=== PATIENT | male | born 1985 | race Caucasian/White ===

== ENCOUNTER 2023-10-15 11:24 | Emergency (ER) | payer MEDICAID ==
[~2023-10-15] VITALS: Ht 172.7 cm; Wt 88.6 kg
[2023-10-15 11:46] VITALS: BP 184/116; PULSE 108; O2SAT 98
[2023-10-15] MEDS ORDERED: ketorolac trometh inj. 60 MG/2 ML VIAL IM ONE (13:40)
[2023-10-15 13:52] VITALS: RESP 17
[2023-10-15] MEDS: ketorolac tromethamine 15mg/ml inj. IM ONE (13:52)
[2023-10-15] MEDS: HYDROcodone/acetaminophen 10/325mg tab PO ONE (13:52)
[2023-10-15] MEDS ORDERED: HYDR-3972 PO (15:02)
[2023-10-15 15:43] VITALS: TEMP 98.7
== END 2023-10-15 15:15 | disposition home or self-care (01) ==
LOC: ER 11:24
DX: S79.911A Unspecified injury of right hip, initial encounter (principal); M79.642 Pain in left hand; M79.641 Pain in right hand; R60.9 Edema, unspecified; W13.8XXA Fall from, out of or through other building or structure, initial encounter; Y93.89 Activity, other specified; Y92.89 Other specified places as the place of occurrence of the external cause; Y99.8 Other external cause status
CPT/HCPCS: 73030; 73130; 73502; 96372; 99284; J1885

== ENCOUNTER 2023-11-01 14:23 | Inpatient (IN) | payer MEDICAID ==
[~2023-11-01] VITALS: Ht 172.7 cm; Wt 86.0 kg
[~2023-11-01 14:23] MED LIST: HYDR-3972 PO
[2023-11-01] MEDS: morphine 4 MG/ML inj SYRINge IV ONE (16:26)
[2023-11-01] MEDS: ketorolac trometh. 30mg/ml inj. IV ONE (16:26)
[2023-11-01] MEDS: normal saline 1000ML IV soln IV ONE (16:36)
[2023-11-01 16:53] LABS: BASOPHILS # (AUTO) 0.1 X10'3 (0-0.2); BASOPHILS % (AUTO) 0.6 % (0-1); EOSINOPHILS # (AUTO) 0.1 X10'3 (0-0.9); HEMOGLOBIN 11.3 g/dl (14.0-17.9); MEAN CORPUSCULAR VOLUME 92.3 FL (78-98); MONOCYTES # (AUTO) 1.8 X10'3 (0-0.9); MONOCYTES % (AUTO) 9.1 % (2-12); NEUTROPHILS # (AUTO) 15.4 X10'3 (1.8-7.7)
[2023-11-01 16:54] LABS: EOSINOPHILS % (AUTO) 0.7 % (0-6); HEMATOCRIT 34.2 % (42.0-52.0); LYMPHOCYTES # (AUTO) 2.5 X10'3 (1.1-4.8); LYMPHOCYTES % (AUTO) 12.4 % (21-51); MEAN CORPUSCULAR HEMOGLOBIN 30.6 PG (27.0-31.0); MEAN CORPUSCULAR HGB CONC 33.2 g/dL (33.0-36.5); MEAN PLATELET VOLUME 6.6 FL (7.4-10.4); NEUTROPHILS % (AUTO) 77.2 % (42-75); PLATELET COUNT 967 X10'3 (140-440); RED CELL DISTRIBUTION WIDTH 13.9 % (11.5-14.5)
[2023-11-01 17:10] LABS: C-REACTIVE PROTEIN 21.06 MG/DL (0.0-0.5); ETHANOL 113 MG/DL (<10); SALICYLATE 4.6 MG/DL (4.0-20.0); URIC ACID 5.9 MG/DL (3.5-7.2)
[2023-11-01 17:15] LABS: ACETAMINOPHEN < 2.0 UG/ML (10-30)
[2023-11-01 17:25] LABS: HIV ANTIBODY 1&2 RAPID NON-REACTIVE (Neg)
[2023-11-01] MEDS: piperacillin/tazo 3.375gm/50ml 50 ML IV ONE (18:03)
[2023-11-01 19:54] LABS: CREATINE KINASE 22 U/L (39-308)
[2023-11-01] MEDS ORDERED: magnesium 2GM in 50ml NS 50 ML IV PRN (21:05)
[2023-11-01] MEDS ORDERED: acetaminophen 325mg tablet PO PRN (21:05)
[2023-11-01] MEDS ORDERED: mag hydrox/Alum hydrox/simeth 30ml oral suspension PO PRN (21:05)
[2023-11-01] MEDS ORDERED: ondansetron/PF 4mg/2ml inj IV PRN (21:05)
[2023-11-01] MEDS ORDERED: potassium Cl 20 mEq SR tablet PO PRN ×2 (21:05)
[2023-11-01] MEDS ORDERED: magnesium hydroxide 30ml (MOM) UD suspension PO PRN (21:05)
[2023-11-01] MEDS ORDERED: potassium Cl 40MEQ/1/2NS 520ml 520 ML IV PRN (21:05)
[2023-11-01] MEDS ORDERED: magnesium Cl slow-release 64mg tablet PO PRN (21:05)
[2023-11-01] MEDS ORDERED: magnesium 4gm in 100ml NS 100 ML IV PRN (21:05)
[2023-11-01] MEDS: vancomycin 1,750 MG in NS 350ml IV soln IV ONE (21:10)
[2023-11-01] MEDS: normal saline 1000ml 1,000 ML IV SCH (21:11)
[2023-11-01 21:55] LABS: ALANINE AMINOTRANSFERASE 25 U/L (12-78); ALBUMIN/GLOBULIN RATIO 0.4 (1.1-1.5); ALKALINE PHOSPHATASE 126 IU/L (46-116); ANION GAP 3 (8-16); ASPARTATE AMINO TRANSFERASE 19 U/L (10-37); BILIRUBIN,TOTAL 0.4 MG/DL (0.1-1.0); BLOOD UREA NITROGEN 9 MG/DL (7-18); BUN/CREATININE RATIO 12.7 (10.0-20.0); CALCIUM 8.7 MG/DL (8.5-10.1); CHLORIDE 102 MMOL/L (99-107); CREATININE 0.71 MG/DL (0.60-1.10); GLUCOSE 100 MG/DL (70-104); POTASSIUM 3.9 MMOL/L (3.5-5.1); SODIUM 135 MMOL/L (135-145); TOTAL CARBON DIOXIDE 30.5 MMOL/L (24-32); TOTAL PROTEIN 7.7 G/DL (6.4-8.2); eCRCL 138 ML/MIN; eGFR > 90 ML/MIN
[2023-11-01] MEDS ORDERED: ASPI81TA52 PO (22:34)
[2023-11-02] MEDS: DOXYCYCLINE 100MG CAPSULE PO STA (00:42)
[2023-11-02] MEDS: CefTRIAXone/D5W-Rocephin 1gm 50 ML IV SCH (00:43)
[2023-11-02] MEDS: HYDROcodone/acetaminophen 5mg/325mg tablet PO PRN (00:47)
[2023-11-02] MEDS ORDERED: vancomycin/NS 1 GM ADD-VANTAGE 250 ML IV SCH (05:00)
[2023-11-02 07:43] LABS: URINE AMPHETAMINE SCREEN NEGATIVE (Neg); URINE BARBITUATE SCREEN NEGATIVE (Neg); URINE BENZODIAZEPINES SCREEN NEGATIVE (Neg); URINE CANNABINOID SCREEN POSITIVE (Neg); URINE COCAINE SCREEN NEGATIVE (Neg); URINE METHADONE SCREEN NEGATIVE (Neg); URINE PHENCYCLIDINE SCREEN NEGATIVE (Neg)
[2023-11-02 07:47] LABS: BILIRUBIN,URINE NEGATIVE (Neg); CLARITY,URINE CLEAR (Clear); COLOR,URINE YELLOW (Yellow); GLUCOSE, URINE NEGATIVE (Neg); KETONES,URINE NEGATIVE (Neg); LEUKOCYTE ESTERASE ,URINE NEGATIVE (Neg); NITRITES, URINE NEGATIVE (Neg); OCCULT BLOOD,URINE NEGATIVE (Neg); PH,URINE 6.5 (4.8-8.0); PROTEIN,URINE NEGATIVE (Neg); UROBILINOGEN,URINE 0.2 E.U/dL (0.2-1.0)
[2023-11-02 07:48] LABS: UA COLLECTION TYPE VOIDED
[2023-11-02] MEDS: K and/or MAG REPLACEMENT MC SCH (08:00)
[2023-11-02 08:11] LABS: EOSINOPHILS # (AUTO) 0.1 X10'3 (0-0.9); LYMPHOCYTES # (AUTO) 1.7 X10'3 (1.1-4.8); MEAN CORPUSCULAR HEMOGLOBIN 31.1 PG (27.0-31.0)
[2023-11-02 08:13] LABS: BASOPHILS % (AUTO) 0.2 % (0-1); EOSINOPHILS % (AUTO) 0.5 % (0-6); HEMOGLOBIN 11.5 g/dl (14.0-17.9); MEAN CORPUSCULAR HGB CONC 33.8 g/dL (33.0-36.5); MEAN CORPUSCULAR VOLUME 92.1 FL (78-98); MEAN PLATELET VOLUME 6.7 FL (7.4-10.4); MONOCYTES # (AUTO) 1.2 X10'3 (0-0.9); MONOCYTES % (AUTO) 8.5 % (2-12); NEUTROPHILS # (AUTO) 11.1 X10'3 (1.8-7.7); NEUTROPHILS % (AUTO) 78.8 % (42-75); PLATELET COUNT 834 X10'3 (140-440); RED BLOOD COUNT 3.69 X10'6 (4.70-6.10); RED CELL DISTRIBUTION WIDTH 14.1 % (11.5-14.5); WHITE BLOOD COUNT 14.1 X10'3 (4.5-11.0)
[2023-11-02 08:37] LABS: ANION GAP 6 (8-16); BLOOD UREA NITROGEN 9 MG/DL (7-18); BUN/CREATININE RATIO 13.4 (10.0-20.0); CALCIUM 9.2 MG/DL (8.5-10.1); CHLORIDE 101 MMOL/L (99-107); CREATININE 0.67 MG/DL (0.60-1.10); GLUCOSE 90 MG/DL (70-104); MAGNESIUM 1.8 MG/DL (1.5-2.4); SODIUM 136 MMOL/L (135-145); TOTAL CARBON DIOXIDE 28.9 MMOL/L (24-32); eCRCL 146 ML/MIN; eGFR > 90 ML/MIN
[2023-11-02] MEDS: docusate sod 100mg capsule PO SCH (08:52)
[2023-11-02] MEDS: enoxaparin 40mg/0.4ml syringe SUBCUT SCH (08:53)
[2023-11-02 17:34] VITALS: RESP 17; O2SAT 100
[2023-11-02 17:40] VITALS: BP 146/99; PULSE 98; RESP 17; TEMP 98.6; O2SAT 100
[2023-11-02 18:00] VITALS: BP 146/99; PULSE 98; RESP 17; TEMP 98.6; O2SAT 100
[2023-11-02 20:00] VITALS: RESP 17; O2SAT 100
[2023-11-02] MEDS ORDERED: morphine 2 MG/ML inj. syringe IV PRN (20:55)
[2023-11-02] MEDS: morphine 2 MG/ML inj. syringe IV PRN (21:07)
[2023-11-02 22:00] VITALS: BP 144/88; PULSE 95; RESP 22; TEMP 97.5; O2SAT 97
[2023-11-03 05:00] VITALS: BP 135/98; PULSE 85; RESP 19; TEMP 98; O2SAT 97
[2023-11-03 06:58] LABS: BASOPHILS # (AUTO) 0.1 X10'3 (0-0.2); EOSINOPHILS # (AUTO) 0.2 X10'3 (0-0.9); EOSINOPHILS % (AUTO) 1.3 % (0-6); HEMATOCRIT 32.9 % (42.0-52.0); HEMOGLOBIN 10.8 g/dl (14.0-17.9); LYMPHOCYTES # (AUTO) 1.9 X10'3 (1.1-4.8); MEAN CORPUSCULAR HEMOGLOBIN 30.3 PG (27.0-31.0); MEAN CORPUSCULAR HGB CONC 32.8 g/dL (33.0-36.5); MEAN CORPUSCULAR VOLUME 92.6 FL (78-98); MEAN PLATELET VOLUME 6.6 FL (7.4-10.4); MONOCYTES % (AUTO) 8.6 % (2-12); NEUTROPHILS # (AUTO) 8.4 X10'3 (1.8-7.7); NEUTROPHILS % (AUTO) 73.1 % (42-75); PLATELET COUNT 777 X10'3 (140-440); RED BLOOD COUNT 3.55 X10'6 (4.70-6.10); RED CELL DISTRIBUTION WIDTH 14.2 % (11.5-14.5); WHITE BLOOD COUNT 11.6 X10'3 (4.5-11.0)
[2023-11-03 07:13] LABS: ALBUMIN 1.8 G/DL (3.4-5.0); ANION GAP 8 (8-16); BLOOD UREA NITROGEN 10 MG/DL (7-18); BUN/CREATININE RATIO 15.6 (10.0-20.0); CHLORIDE 99 MMOL/L (99-107); CREATININE 0.64 MG/DL (0.60-1.10); GLUCOSE 99 MG/DL (70-104); MAGNESIUM 1.8 MG/DL (1.5-2.4); POTASSIUM 3.9 MMOL/L (3.5-5.1); SODIUM 133 MMOL/L (135-145); TOTAL CARBON DIOXIDE 25.9 MMOL/L (24-32); eCRCL 153 ML/MIN; eGFR > 90 ML/MIN
[2023-11-03 08:00] VITALS: RESP 16; O2SAT 97
[2023-11-03 10:00] VITALS: BP 128/90; PULSE 75; RESP 16; TEMP 97.9; O2SAT 97
[2023-11-03] MEDS: LORazepam 1 MG tablet PO ONE ×2 (16:03→17:20)
[2023-11-03 18:00] VITALS: BP 154/101; PULSE 76; RESP 16; TEMP 97.8; O2SAT 100
[2023-11-03 20:00] VITALS: RESP 16; O2SAT 97
[2023-11-03 22:00] VITALS: BP 139/85; PULSE 80; RESP 18; TEMP 98.1; O2SAT 100
[2023-11-04 06:00] VITALS: BP 144/85; PULSE 88; RESP 20; TEMP 98.2; O2SAT 98
[2023-11-04 07:08] LABS: ANION GAP 7 (8-16); BLOOD UREA NITROGEN 11 MG/DL (7-18); BUN/CREATININE RATIO 16.7 (10.0-20.0); CHLORIDE 101 MMOL/L (99-107); CREATININE 0.66 MG/DL (0.60-1.10); GLUCOSE 96 MG/DL (70-104); MAGNESIUM 1.9 MG/DL (1.5-2.4); POTASSIUM 4.1 MMOL/L (3.5-5.1); SODIUM 134 MMOL/L (135-145); TOTAL CARBON DIOXIDE 25.7 MMOL/L (24-32); eCRCL 148 ML/MIN; eGFR > 90 ML/MIN
[2023-11-04 07:09] LABS: HEMOGLOBIN 10.8 g/dl (14.0-17.9); MONOCYTES # (AUTO) 0.8 X10'3 (0-0.9); NEUTROPHILS # (AUTO) 6.2 X10'3 (1.8-7.7)
[2023-11-04 07:15] LABS: BASOPHILS # (AUTO) 0.1 X10'3 (0-0.2); BASOPHILS % (AUTO) 1.5 % (0-1); EOSINOPHILS # (AUTO) 0.3 X10'3 (0-0.9); EOSINOPHILS % (AUTO) 2.8 % (0-6); HEMATOCRIT 32.7 % (42.0-52.0); LYMPHOCYTES # (AUTO) 1.9 X10'3 (1.1-4.8); MEAN CORPUSCULAR HEMOGLOBIN 30.7 PG (27.0-31.0); MEAN CORPUSCULAR VOLUME 93.1 FL (78-98); MONOCYTES % (AUTO) 8.5 % (2-12); NEUTROPHILS % (AUTO) 67.2 % (42-75); PLATELET COUNT 785 X10'3 (140-440); RED BLOOD COUNT 3.51 X10'6 (4.70-6.10); RED CELL DISTRIBUTION WIDTH 14.1 % (11.5-14.5); WHITE BLOOD COUNT 9.3 X10'3 (4.5-11.0)
[2023-11-04 08:45] VITALS: RESP 20; O2SAT 98
[2023-11-04 10:00] VITALS: BP 126/90; PULSE 83; RESP 14; TEMP 97.6; O2SAT 99
[2023-11-04] MEDS: VANCOmycin 2,000MG in NS 500ml IV soln IV ONE (11:32)
[2023-11-04] MEDS ORDERED: iohexol 300mg/ml 100ml inj. ONE (16:19)
[2023-11-04 18:00] VITALS: BP 133/97; PULSE 66; RESP 14; TEMP 97.5; O2SAT 100
[2023-11-04 18:32] LABS: CHLAMYDIA TRACHOMATIS, NAA Negative (Negative)
[2023-11-04] MEDS: vancomycin/NS 1 GM ADD-VANTAGE 250 ML IV SCH (19:44)
[2023-11-04 20:00] VITALS: RESP 20; O2SAT 98
[2023-11-04 20:23] LABS: RHEUM FACTOR QUAL REFLEX TITER NEGATIVE (Neg)
[2023-11-04 22:00] VITALS: BP 136/87; PULSE 70; RESP 14; TEMP 97.9; O2SAT 98
[2023-11-05] VITALS (7 sets, daily range): BP systolic 130–142; BP diastolic 81–90; PULSE 71–107; RESP 14–18; TEMP 97.2–99.3; O2SAT 97–100
[2023-11-05 07:11] LABS: EOSINOPHILS # (AUTO) 0.3 X10'3 (0-0.9); HEMOGLOBIN 11.4 g/dl (14.0-17.9); MONOCYTES # (AUTO) 0.7 X10'3 (0-0.9); NEUTROPHILS # (AUTO) 7.2 X10'3 (1.8-7.7); NEUTROPHILS % (AUTO) 73.3 % (42-75)
[2023-11-05 07:14] LABS: BASOPHILS # (AUTO) 0.1 X10'3 (0-0.2); BASOPHILS % (AUTO) 1.4 % (0-1); EOSINOPHILS % (AUTO) 2.8 % (0-6); HEMATOCRIT 34.1 % (42.0-52.0); LYMPHOCYTES # (AUTO) 1.5 X10'3 (1.1-4.8); LYMPHOCYTES % (AUTO) 15.2 % (21-51); MEAN CORPUSCULAR HEMOGLOBIN 30.7 PG (27.0-31.0); MEAN CORPUSCULAR HGB CONC 33.4 g/dL (33.0-36.5); MONOCYTES % (AUTO) 7.3 % (2-12); PLATELET COUNT 755 X10'3 (140-440); RED CELL DISTRIBUTION WIDTH 14.3 % (11.5-14.5); WHITE BLOOD COUNT 9.8 X10'3 (4.5-11.0)
[2023-11-05 07:26] LABS: ALBUMIN 2.2 G/DL (3.4-5.0); ANION GAP 9 (8-16); BLOOD UREA NITROGEN 9 MG/DL (7-18); BUN/CREATININE RATIO 13.4 (10.0-20.0); CALCIUM 9.1 MG/DL (8.5-10.1); CHLORIDE 102 MMOL/L (99-107); CREATININE 0.67 MG/DL (0.60-1.10); GLUCOSE 98 MG/DL (70-104); MAGNESIUM 1.8 MG/DL (1.5-2.4); POTASSIUM 4.2 MMOL/L (3.5-5.1); SODIUM 137 MMOL/L (135-145); TOTAL CARBON DIOXIDE 26.4 MMOL/L (24-32); eCRCL 146 ML/MIN; eGFR > 90 ML/MIN
[2023-11-05] MEDS: VANCOMYCIN LEVEL IV ONE (11:11)
[2023-11-05] MEDS: HYDROcodone/acetaminophen 10/325mg tab PO PRN (16:03)
[2023-11-05] MEDS ORDERED: GADOTERATE MEGLUMINE 7.5 MMOL/15 ML VIAL IV ONE (16:48)
[2023-11-05] MEDS: polyethylene glycol 3350 17gm powd pack PO SCH (21:00)
[2023-11-06 06:00] VITALS: BP 127/71; PULSE 79; RESP 18; TEMP 97.3; O2SAT 100
[2023-11-06 07:55] LABS: BASOPHILS # (AUTO) 0.1 X10'3 (0-0.2); BASOPHILS % (AUTO) 1.5 % (0-1); EOSINOPHILS # (AUTO) 0.3 X10'3 (0-0.9); EOSINOPHILS % (AUTO) 3.4 % (0-6); HEMATOCRIT 35.4 % (42.0-52.0); HEMOGLOBIN 11.7 g/dl (14.0-17.9); LYMPHOCYTES % (AUTO) 20.5 % (21-51); MEAN CORPUSCULAR HEMOGLOBIN 30.8 PG (27.0-31.0); MEAN CORPUSCULAR HGB CONC 33.1 g/dL (33.0-36.5); MEAN CORPUSCULAR VOLUME 93.1 FL (78-98); MEAN PLATELET VOLUME 7.3 FL (7.4-10.4); MONOCYTES # (AUTO) 0.9 X10'3 (0-0.9); MONOCYTES % (AUTO) 8.9 % (2-12); NEUTROPHILS # (AUTO) 6.5 X10'3 (1.8-7.7); NEUTROPHILS % (AUTO) 65.7 % (42-75); PLATELET COUNT 742 X10'3 (140-440); RED CELL DISTRIBUTION WIDTH 14.5 % (11.5-14.5); WHITE BLOOD COUNT 9.9 X10'3 (4.5-11.0)
[2023-11-06] MEDS: CefTRIAXone 2gm/D5W 50ml BAG 50 ML IV SCH (07:56)
[2023-11-06 08:25] LABS: ALBUMIN 2.6 G/DL (3.4-5.0); ANION GAP 7 (8-16); BLOOD UREA NITROGEN 10 MG/DL (7-18); BUN/CREATININE RATIO 14.7 (10.0-20.0); CALCIUM 9.4 MG/DL (8.5-10.1); CHLORIDE 101 MMOL/L (99-107); CREATININE 0.68 MG/DL (0.60-1.10); GLUCOSE 92 MG/DL (70-104); POTASSIUM 4.5 MMOL/L (3.5-5.1); SODIUM 136 MMOL/L (135-145); TOTAL CARBON DIOXIDE 27.9 MMOL/L (24-32); eCRCL 144 ML/MIN; eGFR > 90 ML/MIN
[2023-11-06 10:00] VITALS: BP 129/82; PULSE 84; RESP 16; TEMP 97.7; O2SAT 99
[2023-11-06 18:00] VITALS: BP 146/93; PULSE 68; RESP 16; TEMP 98.2; O2SAT 100
[2023-11-06 19:24] LABS: ANTI-DSDNA ANTIBODIES <1 IU/mL (0-9); ANTINUCLEAR ANTIBODIES Negative (Negative)
[2023-11-06 22:00] VITALS: BP 136/89; PULSE 65; RESP 16; TEMP 96.8; O2SAT 100
[2023-11-07 06:51] VITALS: BP 131/98; PULSE 68; RESP 16; TEMP 97.3; O2SAT 100
[2023-11-07 09:41] LABS: ALBUMIN 2.9 G/DL (3.4-5.0); ANION GAP 8 (8-16); BLOOD UREA NITROGEN 12 MG/DL (7-18); CHLORIDE 99 MMOL/L (99-107); CREATININE 0.75 MG/DL (0.60-1.10); GLUCOSE 94 MG/DL (70-104); POTASSIUM 3.6 MMOL/L (3.5-5.1); SODIUM 134 MMOL/L (135-145); TOTAL CARBON DIOXIDE 26.9 MMOL/L (24-32); eCRCL 130 ML/MIN; eGFR > 90 ML/MIN
[2023-11-07 09:44] LABS: BASOPHILS # (AUTO) 0.3 X10'3 (0-0.2); BASOPHILS % (AUTO) 2.9 % (0-1); EOSINOPHILS # (AUTO) 0.3 X10'3 (0-0.9); EOSINOPHILS % (AUTO) 3.1 % (0-6); HEMATOCRIT 37.5 % (42.0-52.0); HEMOGLOBIN 12.3 g/dl (14.0-17.9); LYMPHOCYTES % (AUTO) 17.9 % (21-51); MEAN CORPUSCULAR HEMOGLOBIN 30.6 PG (27.0-31.0); MEAN CORPUSCULAR HGB CONC 32.7 g/dL (33.0-36.5); MEAN CORPUSCULAR VOLUME 93.4 FL (78-98); MEAN PLATELET VOLUME 7.3 FL (7.4-10.4); MONOCYTES # (AUTO) 0.9 X10'3 (0-0.9); MONOCYTES % (AUTO) 8.1 % (2-12); NEUTROPHILS # (AUTO) 7.5 X10'3 (1.8-7.7); PLATELET COUNT 777 X10'3 (140-440); RED BLOOD COUNT 4.01 X10'6 (4.70-6.10); RED CELL DISTRIBUTION WIDTH 14.3 % (11.5-14.5)
[2023-11-07 10:00] VITALS: BP 144/89; PULSE 80; RESP 18; TEMP 98.5; O2SAT 99
[2023-11-07 18:00] VITALS: BP 166/93; PULSE 103; RESP 15; TEMP 98.6; O2SAT 100
[2023-11-07 22:00] VITALS: BP 138/88; PULSE 68; RESP 18; TEMP 97.4; O2SAT 100
[2023-11-08 08:47] LABS: EOSINOPHILS # (AUTO) 0.3 X10'3 (0-0.9); HEMOGLOBIN 11.5 g/dl (14.0-17.9); LYMPHOCYTES # (AUTO) 1.9 X10'3 (1.1-4.8); MONOCYTES # (AUTO) 0.9 X10'3 (0-0.9); NEUTROPHILS # (AUTO) 7.4 X10'3 (1.8-7.7)
[2023-11-08 08:49] LABS: BASOPHILS # (AUTO) 0.3 X10'3 (0-0.2); BASOPHILS % (AUTO) 2.8 % (0-1); EOSINOPHILS % (AUTO) 2.7 % (0-6); HEMATOCRIT 35.6 % (42.0-52.0); LYMPHOCYTES % (AUTO) 17.7 % (21-51); MEAN CORPUSCULAR HEMOGLOBIN 30.2 PG (27.0-31.0); MEAN CORPUSCULAR HGB CONC 32.3 g/dL (33.0-36.5); MEAN CORPUSCULAR VOLUME 93.4 FL (78-98); NEUTROPHILS % (AUTO) 68.8 % (42-75); PLATELET COUNT 669 X10'3 (140-440); RED BLOOD COUNT 3.81 X10'6 (4.70-6.10); RED CELL DISTRIBUTION WIDTH 14.6 % (11.5-14.5); WHITE BLOOD COUNT 10.8 X10'3 (4.5-11.0)
[2023-11-08 08:59] LABS: ALANINE AMINOTRANSFERASE 42 U/L (12-78); ALBUMIN 2.7 G/DL (3.4-5.0); ALBUMIN/GLOBULIN RATIO 0.5 (1.1-1.5); ALKALINE PHOSPHATASE 111 IU/L (46-116); ANION GAP 8 (8-16); ASPARTATE AMINO TRANSFERASE 23 U/L (10-37); BILIRUBIN,TOTAL 0.2 MG/DL (0.1-1.0); BLOOD UREA NITROGEN 13 MG/DL (7-18); BUN/CREATININE RATIO 17.6 (10.0-20.0); CALCIUM 9.3 MG/DL (8.5-10.1); CHLORIDE 100 MMOL/L (99-107); CREATININE 0.74 MG/DL (0.60-1.10); GLUCOSE 128 MG/DL (70-104); POTASSIUM 3.5 MMOL/L (3.5-5.1); SODIUM 133 MMOL/L (135-145); TOTAL CARBON DIOXIDE 25.3 MMOL/L (24-32); TOTAL PROTEIN 8.4 G/DL (6.4-8.2); eCRCL 132 ML/MIN; eGFR > 90 ML/MIN
[2023-11-08 09:28] LABS: TOTAL CELLS COUNTED 100
[2023-11-08 09:29] LABS: PLATELET ESTIMATE INCREASED
[2023-11-08 10:00] VITALS: BP 124/77; PULSE 69; RESP 17; TEMP 98; O2SAT 100
== END 2023-11-08 17:15 | DRG 720 ==
LOC: ER 14:23 → ED HOLD 21:05 → UNDOADMIN 21:05 → ED HOLD 21:08 → ORTHO 4S 11-02 16:25
PROVIDERS: ADMIT Surgery Surgical Critical Care; ATTEND Internal Medicine
DX: A41.9 Sepsis, unspecified organism (principal); M00.851 Arthritis due to other bacteria, right hip; L03.114 Cellulitis of left upper limb; M00.9 Pyogenic arthritis, unspecified; F10.129 Alcohol abuse with intoxication, unspecified; M13.0 Polyarthritis, unspecified; M65.842 Other synovitis and tenosynovitis, left hand; S79.811A Other specified injuries of right hip, initial encounter; Y90.9 Presence of alcohol in blood, level not specified; X58.XXXA Exposure to other specified factors, initial encounter; M86.8X6 Other osteomyelitis, lower leg; Y93.89 Activity, other specified; Y92.89 Other specified places as the place of occurrence of the external cause; Y99.8 Other external cause status; Z59.00 Homelessness unspecified
CPT/HCPCS: 36415; 70553; 71045; 72141; 72148; 73201; 73218; 73701; 73721; 80048; 80053; 80202; 80305; 80320; 80329; 81003; 82550; 83605; 83735; 84145; 84484; 84550; 85007; 85025; 85651; 86038; 86140; 86430; 86592; 86703; 87040; 87081; 87491; 93005; 93931; 93971; 97110; 97161; 97530; 99291; A6258; A9575; G0378; J0696; J1650; J1885; J2270; J2543; J3370; J3490; J7030; J7040; Q9967

== ENCOUNTER 2023-11-11 17:17 | Inpatient (IN) | payer MEDICAID ==
[~2023-11-11] VITALS: Ht 172.7 cm; Wt 84.7 kg
[~2023-11-11 17:17] MED LIST changes: +ASPI81TA52 PO; -HYDR-3972 PO
[2023-11-11 18:38] LABS: BASOPHILS # (AUTO) 0.1 X10'3 (0-0.2); BASOPHILS % (AUTO) 0.5 % (0-1); EOSINOPHILS # (AUTO) 0.4 X10'3 (0-0.9); MEAN CORPUSCULAR HEMOGLOBIN 30.7 PG (27.0-31.0)
[2023-11-11 18:39] LABS: HEMATOCRIT 35.1 % (42.0-52.0); HEMOGLOBIN 11.7 g/dl (14.0-17.9); LYMPHOCYTES # (AUTO) 3.1 X10'3 (1.1-4.8); LYMPHOCYTES % (AUTO) 24.9 % (21-51); MEAN CORPUSCULAR HGB CONC 33.3 g/dL (33.0-36.5); MEAN CORPUSCULAR VOLUME 92.2 FL (78-98); MEAN PLATELET VOLUME 6.8 FL (7.4-10.4); MONOCYTES # (AUTO) 1.1 X10'3 (0-0.9); MONOCYTES % (AUTO) 8.6 % (2-12); NEUTROPHILS # (AUTO) 7.7 X10'3 (1.8-7.7); PLATELET COUNT 707 X10'3 (140-440); RED CELL DISTRIBUTION WIDTH 14.5 % (11.5-14.5); WHITE BLOOD COUNT 12.3 X10'3 (4.5-11.0)
[2023-11-11 18:47] LABS: ALBUMIN 3.1 G/DL (3.4-5.0); ANION GAP 5 (8-16); BLOOD UREA NITROGEN 8 MG/DL (7-18); CALCIUM 9.1 MG/DL (8.5-10.1); CHLORIDE 104 MMOL/L (99-107); CREATININE 0.73 MG/DL (0.60-1.10); GLUCOSE 102 MG/DL (70-104); SODIUM 141 MMOL/L (135-145); TOTAL CARBON DIOXIDE 31.7 MMOL/L (24-32); eCRCL 134 ML/MIN; eGFR > 90 ML/MIN
[2023-11-11 18:53] LABS: POTASSIUM 2.8 MMOL/L (3.5-5.1)
[2023-11-11] MEDS: CefTRIAXone/D5W-Rocephin 1gm 50 ML IV ONE (19:59)
[2023-11-11] MEDS: potassium Cl 20 mEq SR tablet PO STA (19:59)
[2023-11-11] MEDS: potassium CL 10mEq/100ml bag 100 ML IV SCH (20:00)
[2023-11-11] MEDS ORDERED: potassium Cl 20 mEq SR tablet PO PRN (21:35)
[2023-11-11] MEDS ORDERED: mag hydrox/Alum hydrox/simeth 30ml oral suspension PO PRN (21:35)
[2023-11-11] MEDS ORDERED: dextrose 50%-water 50ml dispensing syringe IV PRN (21:35)
[2023-11-11] MEDS ORDERED: magnesium 4gm in 100ml NS 100 ML IV PRN (21:35)
[2023-11-11] MEDS ORDERED: potassium Cl 40MEQ/1/2NS 520ml 520 ML IV PRN (21:35)
[2023-11-11] MEDS ORDERED: magnesium 2GM in 50ml NS 50 ML IV PRN (21:35)
[2023-11-11] MEDS ORDERED: haloperidol lactate 5mg/ml inj IM PRN (21:35)
[2023-11-11] MEDS ORDERED: magnesium hydroxide 30ml (MOM) UD suspension PO PRN (21:35)
[2023-11-11] MEDS ORDERED: ondansetron 4mg rapidly disintigrating tab PO PRN (21:35)
[2023-11-11] MEDS ORDERED: magnesium Cl slow-release 64mg tablet PO PRN (21:35)
[2023-11-11] MEDS ORDERED: morphine 2 MG/ML inj. syringe IV PRN (21:35)
[2023-11-11] MEDS ORDERED: acetaminophen 325mg tablet PO PRN ×2 (21:35)
[2023-11-11] MEDS ORDERED: LORazepam 2 mg/ml vial IV PRN ×2 (21:35)
[2023-11-11] MEDS: vancomycin/NS 1 GM ADD-VANTAGE 250 ML IV ONE (22:03)
[2023-11-11] MEDS: normal saline 1000ml 1,000 ML IV SCH (22:03)
[2023-11-11] MEDS: morphine 2 MG/ML inj. syringe IV PRN (23:01)
[2023-11-11] MEDS: ondansetron/PF 4mg/2ml inj IV PRN (23:01)
[2023-11-11 23:09] LABS: C-REACTIVE PROTEIN 0.52 MG/DL (0.0-0.5); FERRITIN 193 NG/ML (26-388); MAGNESIUM 1.7 MG/DL (1.5-2.4); POTASSIUM 3.1 MMOL/L (3.5-5.1)
[2023-11-11 23:15] LABS: ETHANOL < 10 MG/DL (<10)
[2023-11-11] MEDS: vancomycin/NS 1 GM ADD-VANTAGE 250 ML X 1 DOSE IV ONE (23:35)
[2023-11-12] VITALS (7 sets, daily range): BP systolic 115–168; BP diastolic 76–115; PULSE 82–95; RESP 14–18; TEMP 97.1–98.7; O2SAT 97–100
[2023-11-12 00:06] LABS: BILIRUBIN,URINE NEGATIVE (Neg); CLARITY,URINE CLEAR (Clear); COLOR,URINE YELLOW (Yellow); GLUCOSE, URINE NEGATIVE (Neg); KETONES,URINE NEGATIVE (Neg); LEUKOCYTE ESTERASE ,URINE NEGATIVE (Neg); NITRITES, URINE NEGATIVE (Neg); OCCULT BLOOD,URINE NEGATIVE (Neg); PROTEIN,URINE NEGATIVE (Neg); UROBILINOGEN,URINE 0.2 E.U/dL (0.2-1.0)
[2023-11-12 00:25] LABS: UA COLLECTION TYPE URINAL
[2023-11-12 00:28] LABS: URINE AMPHETAMINE SCREEN NEGATIVE (Neg); URINE BARBITUATE SCREEN NEGATIVE (Neg); URINE BENZODIAZEPINES SCREEN NEGATIVE (Neg); URINE CANNABINOID SCREEN POSITIVE (Neg); URINE COCAINE SCREEN NEGATIVE (Neg); URINE METHADONE SCREEN NEGATIVE (Neg); URINE PHENCYCLIDINE SCREEN NEGATIVE (Neg)
[2023-11-12] MEDS: potassium Cl 20 mEq SR tablet PO PRN (00:46)
[2023-11-12 03:29] LABS: EOSINOPHILS # (AUTO) 0.4 X10'3 (0-0.9); HEMOGLOBIN 10.4 g/dl (14.0-17.9); MEAN PLATELET VOLUME 6.8 FL (7.4-10.4); NEUTROPHILS # (AUTO) 7.2 X10'3 (1.8-7.7); RED CELL DISTRIBUTION WIDTH 14.8 % (11.5-14.5)
[2023-11-12 03:30] LABS: BASOPHILS # (AUTO) 0.1 X10'3 (0-0.2); BASOPHILS % (AUTO) 1.2 % (0-1); EOSINOPHILS % (AUTO) 3.8 % (0-6); HEMATOCRIT 31.7 % (42.0-52.0); LYMPHOCYTES # (AUTO) 2.6 X10'3 (1.1-4.8); LYMPHOCYTES % (AUTO) 22.7 % (21-51); MEAN CORPUSCULAR HEMOGLOBIN 30.2 PG (27.0-31.0); MEAN CORPUSCULAR HGB CONC 32.7 g/dL (33.0-36.5); MEAN CORPUSCULAR VOLUME 92.2 FL (78-98); MONOCYTES % (AUTO) 8.5 % (2-12); NEUTROPHILS % (AUTO) 63.8 % (42-75); PLATELET COUNT 606 X10'3 (140-440); RED BLOOD COUNT 3.44 X10'6 (4.70-6.10); WHITE BLOOD COUNT 11.3 X10'3 (4.5-11.0)
[2023-11-12 03:42] LABS: ALANINE AMINOTRANSFERASE 42 U/L (12-78); ALBUMIN 2.5 G/DL (3.4-5.0); ALBUMIN/GLOBULIN RATIO 0.5 (1.1-1.5); ALKALINE PHOSPHATASE 96 IU/L (46-116); ANION GAP 8 (8-16); ASPARTATE AMINO TRANSFERASE 32 U/L (10-37); BILIRUBIN,TOTAL 0.3 MG/DL (0.1-1.0); BLOOD UREA NITROGEN 8 MG/DL (7-18); BUN/CREATININE RATIO 11.3 (10.0-20.0); CALCIUM 8.1 MG/DL (8.5-10.1); CHLORIDE 104 MMOL/L (99-107); CREATININE 0.71 MG/DL (0.60-1.10); GLUCOSE 99 MG/DL (70-104); MAGNESIUM 1.7 MG/DL (1.5-2.4); POTASSIUM 3.4 MMOL/L (3.5-5.1); SODIUM 139 MMOL/L (135-145); TOTAL PROTEIN 7.1 G/DL (6.4-8.2); eCRCL 138 ML/MIN; eGFR > 90 ML/MIN
[2023-11-12 04:24] LABS: APTT 24 SECONDS (22-32); INR 1.1 INR; PROTHROMBIN TIME 11.3 SECONDS (9.0-12.0)
[2023-11-12] MEDS: docusate sod 100mg capsule PO SCH (09:30)
[2023-11-12] MEDS: vancomycin/NS 1 GM ADD-VANTAGE 250 ML IV SCH (10:13)
[2023-11-12] MEDS: thiamine 100mg/ml 2ml inj. IV SCH (10:13)
[2023-11-12] MEDS: methylPREDNISolone sod succ 125mg/2ml vial IV SCH (10:14)
[2023-11-12] MEDS: enoxaparin 40mg/0.4ml syringe SUBCUT SCH (10:15)
[2023-11-12] MEDS: HYDROcodone/acetaminophen 5mg/325mg tablet PO PRN (10:16)
[2023-11-12] MEDS: K and/or MAG REPLACEMENT MC SCH (12:00)
[2023-11-12] MEDS: folic acid 1mg/0.2ml inj IV SCH (15:25)
[2023-11-12] MEDS: CefTRIAXone 2gm/D5W 50ml BAG 50 ML IV SCH (19:26)
[2023-11-12] MEDS: hydrALAZINE 20mg/ml inj. IV PRN (22:40)
[2023-11-13] MEDS: VANCOMYCIN LEVEL IV ONE (00:21)
[2023-11-13 05:33] LABS: APTT 24 SECONDS (22-32); PROTHROMBIN TIME 11.2 SECONDS (9.0-12.0)
[2023-11-13 05:36] LABS: ALANINE AMINOTRANSFERASE 36 U/L (12-78); ALBUMIN 2.7 G/DL (3.4-5.0); ALBUMIN/GLOBULIN RATIO 0.6 (1.1-1.5); ALKALINE PHOSPHATASE 115 IU/L (46-116); ANION GAP 8 (8-16); ASPARTATE AMINO TRANSFERASE 13 U/L (10-37); BASOPHILS # (AUTO) 0.2 X10'3 (0-0.2); BILIRUBIN,TOTAL 0.2 MG/DL (0.1-1.0); BLOOD UREA NITROGEN 6 MG/DL (7-18); CHLORIDE 102 MMOL/L (99-107); EOSINOPHILS # (AUTO) 0.1 X10'3 (0-0.9); EOSINOPHILS % (AUTO) 0.5 % (0-6); GLUCOSE 102 MG/DL (70-104); HEMOGLOBIN 10.6 g/dl (14.0-17.9); LYMPHOCYTES # (AUTO) 2.8 X10'3 (1.1-4.8); MAGNESIUM 1.9 MG/DL (1.5-2.4); MEAN PLATELET VOLUME 7.5 FL (7.4-10.4); MONOCYTES # (AUTO) 1.2 X10'3 (0-0.9); PHOSPHORUS 4.4 MG/DL (2.3-4.5); POTASSIUM 3.8 MMOL/L (3.5-5.1); SODIUM 137 MMOL/L (135-145); TOTAL CARBON DIOXIDE 27.3 MMOL/L (24-32); TOTAL PROTEIN 7.6 G/DL (6.4-8.2); WHITE BLOOD COUNT 17.4 X10'3 (4.5-11.0); eCRCL 163 ML/MIN; eGFR > 90 ML/MIN
[2023-11-13 05:38] LABS: BASOPHILS % (AUTO) 1.1 % (0-1); HEMATOCRIT 32.7 % (42.0-52.0); LYMPHOCYTES % (AUTO) 15.8 % (21-51); MEAN CORPUSCULAR HEMOGLOBIN 29.9 PG (27.0-31.0); MEAN CORPUSCULAR HGB CONC 32.4 g/dL (33.0-36.5); MEAN CORPUSCULAR VOLUME 92.2 FL (78-98); NEUTROPHILS # (AUTO) 13.2 X10'3 (1.8-7.7); NEUTROPHILS % (AUTO) 75.6 % (42-75); PLATELET COUNT 646 X10'3 (140-440); RED BLOOD COUNT 3.55 X10'6 (4.70-6.10); RED CELL DISTRIBUTION WIDTH 14.5 % (11.5-14.5)
[2023-11-13 06:00] VITALS: BP 132/97; PULSE 82; RESP 16; TEMP 97.8; O2SAT 99
[2023-11-13 08:00] VITALS: RESP 14
[2023-11-13] MEDS ORDERED: VANCOMYCIN LEVEL IV ONE (08:30)
[2023-11-13] MEDS: VANCOmycin 1250MG/NS 250ml Bag 250 ML IV SCH (10:56)
[2023-11-13 11:00] VITALS: BP 151/97; PULSE 93; RESP 18; TEMP 97.5; O2SAT 100
[2023-11-13] MEDS: lisinopril 10 MG tablet PO SCH (16:55)
[2023-11-13 18:00] VITALS: BP 156/116; PULSE 80; RESP 14; TEMP 98.4; O2SAT 99
[2023-11-13 20:20] VITALS: RESP 14
[2023-11-13 22:00] VITALS: BP 112/69; PULSE 100; RESP 14; TEMP 98.3; O2SAT 99
[2023-11-14 05:38] LABS: BASOPHILS # (AUTO) 0.1 X10'3 (0-0.2); BASOPHILS % (AUTO) 0.4 % (0-1); EOSINOPHILS # (AUTO) 0.4 X10'3 (0-0.9); EOSINOPHILS % (AUTO) 2.8 % (0-6); HEMATOCRIT 33.2 % (42.0-52.0); HEMOGLOBIN 10.7 g/dl (14.0-17.9); LYMPHOCYTES # (AUTO) 2.7 X10'3 (1.1-4.8); LYMPHOCYTES % (AUTO) 20.4 % (21-51); MEAN CORPUSCULAR HEMOGLOBIN 29.9 PG (27.0-31.0); MEAN CORPUSCULAR HGB CONC 32.2 g/dL (33.0-36.5); MEAN CORPUSCULAR VOLUME 92.7 FL (78-98); MEAN PLATELET VOLUME 7.4 FL (7.4-10.4); MONOCYTES # (AUTO) 1.2 X10'3 (0-0.9); MONOCYTES % (AUTO) 8.6 % (2-12); NEUTROPHILS # (AUTO) 9.1 X10'3 (1.8-7.7); NEUTROPHILS % (AUTO) 67.8 % (42-75); PLATELET COUNT 616 X10'3 (140-440); RED BLOOD COUNT 3.59 X10'6 (4.70-6.10); RED CELL DISTRIBUTION WIDTH 14.7 % (11.5-14.5); WHITE BLOOD COUNT 13.4 X10'3 (4.5-11.0)
[2023-11-14 05:50] LABS: APTT 24 SECONDS (22-32); INR 1.1 INR; PROTHROMBIN TIME 11.1 SECONDS (9.0-12.0)
[2023-11-14 06:00] VITALS: BP 124/78; PULSE 78; RESP 18; TEMP 98.1; O2SAT 99
[2023-11-14 06:02] LABS: ALANINE AMINOTRANSFERASE 36 U/L (12-78); ALBUMIN 2.6 G/DL (3.4-5.0); ALBUMIN/GLOBULIN RATIO 0.6 (1.1-1.5); ALKALINE PHOSPHATASE 106 IU/L (46-116); ANION GAP 7 (8-16); ASPARTATE AMINO TRANSFERASE 16 U/L (10-37); BILIRUBIN,TOTAL 0.3 MG/DL (0.1-1.0); BLOOD UREA NITROGEN 9 MG/DL (7-18); BUN/CREATININE RATIO 13.2 (10.0-20.0); CALCIUM 8.3 MG/DL (8.5-10.1); CHLORIDE 103 MMOL/L (99-107); CREATININE 0.68 MG/DL (0.60-1.10); GLUCOSE 92 MG/DL (70-104); MAGNESIUM 1.8 MG/DL (1.5-2.4); PHOSPHORUS 5.5 MG/DL (2.3-4.5); POTASSIUM 3.9 MMOL/L (3.5-5.1); SODIUM 138 MMOL/L (135-145); TOTAL CARBON DIOXIDE 28.3 MMOL/L (24-32); TOTAL PROTEIN 6.9 G/DL (6.4-8.2); eCRCL 144 ML/MIN; eGFR > 90 ML/MIN
[2023-11-14] MEDS: VANCOMYCIN LEVEL IV ONE ×2 (08:30→16:47)
[2023-11-14 10:00] VITALS: BP 129/92; PULSE 78; RESP 15; TEMP 97.1; O2SAT 100
[2023-11-14] MEDS: ibuprofen tablet 400 MG TABLET PO PRN (13:06)
[2023-11-14 18:00] VITALS: BP 144/102; PULSE 87; RESP 16; TEMP 98.2; O2SAT 100
[2023-11-14 20:00] VITALS: RESP 16
[2023-11-14 22:00] VITALS: BP 149/94; PULSE 95; RESP 18; TEMP 97.3; O2SAT 99
[2023-11-15 06:00] VITALS: BP 131/78; PULSE 83; RESP 12; TEMP 97.6; O2SAT 98
[2023-11-15 07:00] LABS: BASOPHILS # (AUTO) 0.2 X10'3 (0-0.2); BASOPHILS % (AUTO) 1.9 % (0-1); EOSINOPHILS # (AUTO) 0.4 X10'3 (0-0.9); EOSINOPHILS % (AUTO) 3.3 % (0-6); HEMATOCRIT 33.2 % (42.0-52.0); HEMOGLOBIN 10.9 g/dl (14.0-17.9); LYMPHOCYTES # (AUTO) 2.1 X10'3 (1.1-4.8); MEAN CORPUSCULAR HEMOGLOBIN 30.3 PG (27.0-31.0); MEAN CORPUSCULAR HGB CONC 32.9 g/dL (33.0-36.5); MEAN CORPUSCULAR VOLUME 92.1 FL (78-98); MEAN PLATELET VOLUME 7.5 FL (7.4-10.4); MONOCYTES % (AUTO) 8.4 % (2-12); NEUTROPHILS # (AUTO) 7.6 X10'3 (1.8-7.7); NEUTROPHILS % (AUTO) 67.4 % (42-75); PLATELET COUNT 556 X10'3 (140-440); RED BLOOD COUNT 3.61 X10'6 (4.70-6.10); RED CELL DISTRIBUTION WIDTH 14.8 % (11.5-14.5); WHITE BLOOD COUNT 11.3 X10'3 (4.5-11.0)
[2023-11-15 07:25] LABS: ALANINE AMINOTRANSFERASE 34 U/L (12-78); ALBUMIN 2.8 G/DL (3.4-5.0); ALBUMIN/GLOBULIN RATIO 0.6 (1.1-1.5); ALKALINE PHOSPHATASE 107 IU/L (46-116); ANION GAP 9 (8-16); ASPARTATE AMINO TRANSFERASE 16 U/L (10-37); BILIRUBIN,TOTAL 0.2 MG/DL (0.1-1.0); BLOOD UREA NITROGEN 10 MG/DL (7-18); BUN/CREATININE RATIO 16.7 (10.0-20.0); CALCIUM 8.8 MG/DL (8.5-10.1); CHLORIDE 104 MMOL/L (99-107); GLUCOSE 103 MG/DL (70-104); MAGNESIUM 2.2 MG/DL (1.5-2.4); POTASSIUM 3.8 MMOL/L (3.5-5.1); SODIUM 140 MMOL/L (135-145); TOTAL CARBON DIOXIDE 27.5 MMOL/L (24-32); TOTAL PROTEIN 7.2 G/DL (6.4-8.2); eCRCL 163 ML/MIN; eGFR > 90 ML/MIN
[2023-11-15 10:00] VITALS: BP 159/106; PULSE 85; RESP 16; TEMP 97.9; O2SAT 100
[2023-11-16] MEDS ORDERED: folic acid 1mg tablet PO SCH (08:00)
[2023-11-16] MEDS ORDERED: thiamine 100mg tablet PO SCH (08:00)
== END 2023-11-15 16:35 | disposition left against medical advice (07) | DRG 344 ==
LOC: ER 17:17 → ED HOLD 21:45 → EDBEDREQ 11-12 06:12 → ORTHO 4S 11-12 07:57
PROVIDERS: ADMIT Family Medicine; ATTEND Family Medicine
PROC: 02HV33Z Insertion of Infusion Device into Superior Vena Cava, Percutaneous Approach (ICD-10-PCS; principal; 2023-11-12)
DX: M86.8X4 Other osteomyelitis, hand (principal); R65.10 Systemic inflammatory response syndrome (SIRS) of non-infectious origin without acute organ dysfunction; M65.842 Other synovitis and tenosynovitis, left hand; M86.8X8 Other osteomyelitis, other site; Z53.21 Procedure and treatment not carried out due to patient leaving prior to being seen by health care provider; D64.9 Anemia, unspecified; F10.139 Alcohol abuse with withdrawal, unspecified; D75.839 Thrombocytosis, unspecified; I10 Essential (primary) hypertension; E87.6 Hypokalemia; D72.829 Elevated white blood cell count, unspecified
CPT/HCPCS: 36415; 76942; 80048; 80053; 80202; 80305; 80320; 81003; 82728; 83540; 83605; 83735; 84100; 84132; 84133; 84145; 84466; 85025; 85610; 85651; 85730; 86140; 87040; 87081; 93306; 97110; 97116; 97161; 97530; 97535; 99285; A4333; C1751; G0378; J0360; J0696; J1650; J2270; J2405; J2919; J3370; J3411; J3480; J3490; J7030

== ENCOUNTER 2025-01-07 10:36 | Outpatient (CLI) | payer MEDICAID ==
--- NOTE | 2025-01-08 17:33 | RADIOLOGY REPORT ---
CLINICAL INDICATION: PAIN IN RIGHT HIP COMPARISON: MR MRI LOWER EXTREMITY RIGHT on DOS: 11/03/23 TECHNIQUE: Multiplanar, multi-sequence MRI of the right hip was performed without intravenous contrast. Contrast: None INTERPRETATION: Motion artifact limits evaluation. Bones/joint space /articular cartilage: There is moderate bone marrow edema in the right femoral head and right acetabulum. The marrow edema is similar to the prior MRI from 11/03/2023. There is no T1 hypointensity on the T1 weighted images to suggest marrow replacement. There is interval development of subcortical irregularity in the right femoral head with loss of the overlying articular cartilage since the prior study compatible with progression of osteoarthritis and there is severe right hip juan nt space narrowing which is also increased. There is a right hip joint effusion and synovitis althou gh decreased since the prior study. Right hip joint alignment is maintained. Tendons, muscles and bursae: No evidence of tendon tear. There is significant decrease in intramuscul ar edema, essentially resolved since the prior study. No muscle atrophy. No bursitis. Acetabular labrum: Diffuse degeneration of the labrum. Other findings: No lymphadenopathy. IMPRESSION: 1. Persistent marrow edema in the right femoral head and right acetabulum. There is progression of os teoarthritis in the right hip joint. 2. Decreased right hip joint effusion and synovitis. 3. Resolution of intramuscular edema.
== END 2025-01-07 23:59 | disposition home or self-care (01) ==
LOC: MRI02 10:36
PROVIDERS: ATTEND Student in an Organized Health Care Education/Training Program
DX: M16.11 Unilateral primary osteoarthritis, right hip (principal); M25.451 Effusion, right hip; M25.851 Other specified joint disorders, right hip; M65.88 Other synovitis and tenosynovitis, other site; M25.551 Pain in right hip; R60.0 Localized edema
CPT/HCPCS: 73721